=== PATIENT | female | born 1950 | race Caucasian/White ===

== ENCOUNTER → 2016-08-08 | Outpatient (CLI) | payer OTHER, BC ==
[~2016-08-08] MED LIST: ADULT LOW DOSE81 MG PO; MEDROLDOSEPACK PO; NORCO 5-325 TA1 EACH PO; TIAZAC
== END ==
LOC: ULTRA 12:59
DX: E04.9 Nontoxic goiter, unspecified (principal)

== ENCOUNTER → 2016-10-20 | Outpatient (CLI) | payer OTHER, BC | LOC: RAD 09:43 | DX: M47.896 Other spondylosis, lumbar region (principal) ==

== ENCOUNTER → 2018-04-12 | Outpatient (CLI) | payer OTHER, BC | LOC: RAD 09:12 | DX: M47.22 Other spondylosis with radiculopathy, cervical region (principal); M48.02 Spinal stenosis, cervical region ==